=== PATIENT | female | born 1950 | race African-American/Black ===

== ENCOUNTER 2017-03-19 15:24 | Emergency (ER) | payer BC ==
[2017-03-19 15:38] VITALS: BP 160/87
--- NOTE | 2017-03-19 16:13 | RAD ---
INDICATION: Right knee injury. TECHNIQUE: 4 views of the right knee were obtained. FINDINGS: The bones are in normal alignment. No joint effusion or fracture is seen. Joint spaces appear maintained. There is a small lucent area which projects over the medial femoral condyle with faint sclerotic margin possibly representing subchondral cyst. IMPRESSION: NO EVIDENCE FOR FRACTURE.
--- NOTE | 2017-03-19 16:29 | UC ---
Knee Pain HPI - HPI Summary HPI Summary: Pt presents with right knee pain for 3 weeks. She tells me that she runs very often. About 3 weeks ago she was running on a trail and tripped - twisted her right knee and fell onto it. Since that time she has had pain and instability when walking/running. Has not taken anything for the pain, but has been wearing a knee brace. Denies fever, chills, SOB, chest pain, swelling, numbness, or tingling. - History of Current Complaint Chief Complaint: UCLowerExtremity Stated Complaint: knee injury Time Seen by Provider: 03/19/17 15:52 Hx Obtained From: Patient Onset/Duration: Sudden Onset Severity Initially: Moderate Severity Currently: Moderate Pain Intensity: 8 Pain Scale Used: 0-10 Numeric Character: Sharp, Aching, Throbbing Aggravating Factor(s): Movement, Weight Bearing Alleviating Factor(s): Rest - Allergies/Home Medications Allergies/Adverse Reactions: Allergies Allergy/AdvReac Type Severity Reaction Status Date / Time SEVERAL SENSITIVITIES TO Allergy Unknown SENSITIVITY Uncoded 11/05/14 08:21 MEDICATION Home Medications: Home Medications Glucosamine-Chondroitin [Glucosamine & Chondroitin 500-400 mg] 1 cap PO DAILY [History Confirmed 03/19/17] PMH/Surg Hx/FS Hx/Imm Hx Previously Healthy: Yes Cardiovascular History: Hypertension - Surgical History Surgical History: None Surgery Procedure, Year, and Place: C SECTIONS. CATARACT. BREAST IMPLANTS - SILICONE - W/ SEVERAL REVISION AND REPLACEMENTS - Family History Known Family History: Positive: Hypertension - in both parents - Social History Occupation: Retired Lives: With Family Alcohol Use: Rare Substance Use Type: None Smoking Status (MU): Never Smoked Tobacco - Immunization History Most Recent Influenza Vaccination: none Review of Systems Constitutional: Negative Respiratory: Negative Cardiovascular: Negative Neurovascular: Negative Musculoskeletal: Other: - Right knee pain Neurological: Negative All Other Systems Reviewed And Are Negative: Yes Physical Exam Triage Information Reviewed: Yes Appearance: Well-Appearing, No Pain Distress, Well-Nourished Vital Signs: Initial Vital Signs Temp 97.6 F 03/19/17 15:34 Pulse 59 03/19/17 15:34 Resp 16 03/19/17 15:34 BP 160/87 03/19/17 15:34 Pulse Ox 99 03/19/17 15:34 Vital Signs Reviewed: Yes Neck: Positive: Supple, Nontender, No Lymphadenopathy Respiratory: Positive: Chest non-tender, Lungs clear, Normal breath sounds Cardiovascular: Positive: RRR, No Murmur, Pulses Normal Musculoskeletal: Positive: Strength Intact - Right knee, ROM Intact - Right knee , No Edema - Right knee, Other: - Right knee: Positive Meri. FROM. Strength 5/5. No edema or obvious bony deformities.. No patella apprehension. Negative Kashif, A/P drawer, and varus/valgus stress. Neurological: Positive: Alert, Other: - Sensations B/L LEs intact L3-S1. Psychological: Positive: Age Appropriate Behavior Skin: Negative: rashes Knee Pain Course/Dx - Course Course Of Treatment: knee XR: NO EVIDENCE FOR FRACTURE. Suspect meniscal injury. Advised to keep using knee brace, limit running for a 3-4 days, and follow up with orthopedics. May take ibuprofen for pain. - Differential Dx/Diagnosis Differential Diagnosis/HQI/PQRI: Contusion, Dislocation, Fracture (Closed), Internal Derangement Of Knee, Patellofemoral Syndrome, Sprain, Strain Provider Diagnoses: Internal derangement of right knee Discharge - Discharge Plan Condition: Stable Disposition: HOME Patient Education Materials: Knee Pain (ED) Referrals: No Primary Care Phys,NOPCP [Primary Care Provider] - Additional Instructions: If you develop a fever, shortness of breath, chest pain, new or worsening symptoms - please call your PCP or go to the ED. Your blood pressure was high at todays visit. Please see your primary provider within 4 weeks for recheck and re-evaluation. 1) Rest, Ice, and Elevate your knee as much as possible. Continue wearing your knee brace when active. 2) May take 400mg Ibuprofen every 6-8hrs as needed for pain. 3) Please call Orthopedics at the number below to schedule a follow up appointment.
== END 2017-03-19 16:38 | disposition home or self-care (01) ==
LOC: UCEAST 15:24
DX: M23.91 Unspecified internal derangement of right knee (principal); Z88.8 Allergy status to other drugs, medicaments and biological substances; W01.0XXA Fall on same level from slipping, tripping and stumbling without subsequent striking against object, initial encounter; Y93.02 Activity, running; Y92.9 Unspecified place or not applicable
CPT/HCPCS: 99211; G0463